=== PATIENT | male | born 1980 | race Caucasian/White ===

== ENCOUNTER 2019-12-21 08:13 | Emergency (ER) | payer OTHER, SELFPAY ==
--- NOTE | 2019-12-21 08:14 | XR_ITS ---
WS: [id number] LEFT HAND: 3 VIEW(S) TECHNIQUE: PA, oblique and lateral. HISTORY: injury COMPARISON: None available. Comminuted fracture involving the distal phalanx of the fourth finger. Fracture extends intra-articul ar without significant displacement. No additional fractures. There is foreign body measuring 5 mm in the soft tissues along the volar surface of the palm at the level of the third metacarpal. XR/XR hand LT min 3V* [id number] IMPRESSION: 1. Comminuted, intra-articular fracture distal phalanx fourth finger. 2. Metallic foreign body measuring 5 mm palmar surface at the level of the mid third metacarpal.
[2019-12-21 08:19] VITALS: BP 150/93; PULSE 91; RESP 17; TEMP 37; O2SAT 96; BMI 33.7
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
[2019-12-21 08:23] VITALS: PULSE 95; RESP 17; O2SAT 97
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
[2019-12-21] MEDS: HYDROcodone-acetaminophen 7.5-325 mg Tablet 1 TAB PO (08:40)
[2019-12-21] MEDS: cephALEXin 500 mg Capsule PO (09:10)
[2019-12-21 09:29] VITALS: BP 158/89; PULSE 90; RESP 16; O2SAT 97
--- NOTE | 2019-12-23 11:55 | DCPLANNER ---
survey research manager had message to schedule a follow up appointment for patient with ortho. survey research manager called the ortho clinic, spoke with Vonda survey research manager gave clinic patients information, was told that patients information would be printed and reviewed. Clinic will call family caseworker and patient with appointment information,
--- NOTE | 2019-12-29 08:13 | DCPLANNER ---
Jaclyn from [facility] called high risk case manager, stating that she spoke with patient, and that patient wants a referral in the [facility] area. land manager attempted to call patient, unable to speak with patient or leave a message for patient at this time.
== END 2019-12-21 09:31 | disposition home or self-care (01) ==
PROVIDERS: Emergency Provider Physician Assistant
DX: S62.635A Displaced fracture of distal phalanx of left ring finger, initial encounter for closed fracture (principal); S60.032A Contusion of left middle finger without damage to nail, initial encounter; V86.59XA Driver of other special all-terrain or other off-road motor vehicle injured in nontraffic accident, initial encounter
CPT/HCPCS: 11740; 12345; 29130; 73130; 99282; 99283